=== PATIENT | female | born 1945 | race Two or more races ===

== ENCOUNTER 2024-09-12 15:31 | Emergency (ER) | payer MEDICARE, SELFPAY ==
[2024-09-12 15:35] VITALS: BP 109/58
--- NOTE | 2024-09-12 15:41 | ED.GENMED ---
ED Provider Triage
<Sharon Yun K 12 PRINCIPAL - Last Filed: 09/12/24 15:56>
-
Patient seen by provider in Triage?: Seen in Triage
Attestation: A medical screening examination has been initiated by a qualified medical provider. Based on the assessment performed at this time, it has been determined that an emergent medical condition may exist and the patient has been informed
that further medical evaluation and possible additional diagnostic testing may be needed.
HPI: 88 yo female here for dizziness, is currently taking Meclizine, here because after shopping at [employer] w granddaughter she felt like she was going to pass out. States sometimes her sugar goes low so she drank some Pepsi. As granddaughter was
pouring it, pt felt weak and almost fainted. Granddaughter called her father who called the ambulance.
Ate an egg and toast for breakfast 11:30 a.m.
'I feel a little bit weak but not dizzy.' Denies n/v/d/c
Has history of Vertigo
GENERAL: Alert , in no apparent distress
EYE: No visual abnormalities.
ENT: No visible abnormalities.
LUNGS: No acute respiratory distress
NEUROLOGICAL: Alert and oriented
SKIN: Skin intact. No visible changes.
MUSCULOSKELETAL: Moving extremities normally
PSYCH: Normal and appropriate interaction.
This is a medical evaluation conducted in person to initiate diagnostic evaluation and provide initial therapeutics. Please see further documentation by the treating clinician.
History of Present Illness
<Sharon Yun, K 12 PRINCIPAL - Last Filed: 09/12/24 15:56>
General
Chief Complaint: Dizziness
Time Seen by Provider: 09/12/24 18:12
<LEXY Muller - Last Filed: 09/12/24 19:38>
General
Source: patient
Exam Limitations: none
History of Present Illness
History of Present Illness:
This is an 79 year old female that comes in with c/o dizziness. States that she almost fainted. States that she had been out with her granddaughter and when they got home she felt like her blood sugar was low so she asked her for a coke. State
that she felt like she was going to fall down so her granddaughter helped her to the [employer] school football [employer]. Patient states that she did not pass out. States that she only had breakfast and did not eat throughout the day. Denies any fever, chills, chest pain, SOB,
abd pain, nausea, vomiting, diarrhea, headache, dizziness, urinary burning.
Past History
<LEXY Muller - Last Filed: 09/12/24 19:38>
Past History
ED Past Medical History: HTN, Hypercholesterolemia, NIDDM and Other (Vertigo, )
ED Past Surgical History: None
Social History
Tobacco: Non-smoker
Alcohol: Occasional
Personal:
Living: with family
Review of Systems
<LEXY Muller - Last Filed: 09/12/24 19:38>
Review of Systems
All Other Systems: ROS reviewed and negative except as documented in HPI and ROS
Constitutional: Reports no symptoms; Denies fever or chills
EENT: Reports no symptoms
Respiratory: Reports no symptoms; Denies cough or trouble breathing
Cardiac: Reports no symptoms; Denies chest pain
ABD/GI: Reports no symptoms; Denies abdominal pain, nausea, vomiting or diarrhea
: Reports no symptoms; Denies dysuria, frequency or urgency
Musculoskeletal: Reports no symptoms
Skin: Reports no symptoms
Neurological: Reports no symptoms; Denies dizzy or headache
Psychiatric: Reports no symptoms
Phy Exam
<LEXY Muller - Last Filed: 09/12/24 19:38>
General Physical Exam
General Presentation: no apparent distress
General age: appears stated age
General Skin: warm and dry
General Habitus: elderly
General Mental: alert
General Hydration: appears well hydrated (Patient just took a sip of water)
ENT Exam
ENT Exam: TM's normal, pharynx normal and neck supple
Eye Exam
Eye Exam: EOMI
Cardiovascular Exam
Cardiovascular Exam: regular rate/rhythm, no edema, no murmur and normal peripheral pulses
Pulmonary Exam
Pulmonary Exam: lungs clear, no respiratory distress, no rales, chest non tender, no crackles, no rhonchi, no wheezing and no cough
Gastrointestinal Exam
Gastrointestinal Exam: normal bowel sounds, non tender, soft, no organomegaly, no pulsatile mass and non distended
Musculoskeletal Exam
Musculoskeletal Exam: full ROM and no edema
Skin Exam
Skin Exam: normal color, warm/dry, no rash and no petechia
Psychiatric Exam
Psychiatric Exam: normal mood/affect
Course
<Sharon Yun K 12 PRINCIPAL - Last Filed: 09/12/24 15:56>
Orders/Labs/Results
Orders:
Orders
09/12/24 16:02
Complete Blood Count/With Diff Urgent
Comprehensive Metabolic Panel Urgent
09/12/24 18:21
Electrocardiogram (*1) Urgent
Reason for Study: Vertigo / Dizzy
EKG- Treatment ONCE
Orthostatic VS- Treatment ONCE
0.9% Sodium Chloride 1000 ml [Nss] 1,000 ml IV BOLUS
09/12/24 18:28
Troponin I Urgent
Abnormal Lab Results
09/12/24
16:02
MCH 25.6 L pg
(27.0-31.0)
MCHC 30.6 L g/dL
(33.0-37.0)
Absolute Neuts (auto) 9.6 H 10^3/uL
(1.4-6.5)
Absolute Lymphs (auto) 0.5 L 10^3/uL
(1.2-3.4)
Neutrophils % 89.8 H %
(42.2-75.2)
Lymphocytes % 4.7 L %
(20.5-51.1)
BUN 28 H mg/dl
(7-17)
Glucose 170 H mg/dl
(70-99)
09/12/24 16:02
09/12/24 16:02
Vital Signs
Initial and Last Documented VS:
Initial Vital Signs
Temp Pulse Resp BP Pulse Ox
98.4 F 107 16 109/58 98
09/12/24 15:35 09/12/24 15:35 09/12/24 15:35 09/12/24 15:35 09/12/24 15:35
Last Documented Vital Signs
Temp Pulse Resp BP Pulse Ox
98.4 F 107 16 145/64 96
09/12/24 15:35 09/12/24 15:35 09/12/24 15:35 09/12/24 18:43 09/12/24 18:45
<LEXY Muller - Last Filed: 09/12/24 19:38>
Orders/Labs/Results
Orders:
Orders
09/12/24 16:02
Complete Blood Count/With Diff Urgent
Comprehensive Metabolic Panel Urgent
09/12/24 18:21
Electrocardiogram (*1) Urgent
Reason for Study: Vertigo / Dizzy
EKG- Treatment ONCE
Orthostatic VS- Treatment ONCE
0.9% Sodium Chloride 1000 ml [Nss] 1,000 ml IV BOLUS
09/12/24 18:28
Troponin I Urgent
Abnormal Lab Results
09/12/24
16:02
MCH 25.6 L pg
(27.0-31.0)
MCHC 30.6 L g/dL
(33.0-37.0)
Absolute Neuts (auto) 9.6 H 10^3/uL
(1.4-6.5)
Absolute Lymphs (auto) 0.5 L 10^3/uL
(1.2-3.4)
Neutrophils % 89.8 H %
(42.2-75.2)
Lymphocytes % 4.7 L %
(20.5-51.1)
BUN 28 H mg/dl
(7-17)
Glucose 170 H mg/dl
(70-99)
09/12/24 16:02
09/12/24 16:02
Dehydration. Hyperglycemia.
Vital Signs
Initial and Last Documented VS:
Initial Vital Signs
Temp Pulse Resp BP Pulse Ox
98.4 F 107 16 109/58 98
09/12/24 15:35 09/12/24 15:35 09/12/24 15:35 09/12/24 15:35 09/12/24 15:35
Last Documented Vital Signs
Temp Pulse Resp BP Pulse Ox
98.4 F 107 16 145/64 96
09/12/24 15:35 09/12/24 15:35 09/12/24 15:35 09/12/24 18:43 09/12/24 18:45
<LEXY Muller - Last Filed: 09/12/24 19:38>
MDM/Problems Addressed
Differential Diagnosis Includes:
Dehydration. Vertigo
MDM/Problems Addressed:
This is a 79 year old female that comes in with c/o feeling like she was going to fall down. Patient only eat breakfast this morning and has not eaten the rest of the day. States that she was really not drinking much water today.
Will check labs, give IV fluids, Orthostatic vitals and ECG
back into see patient. patient is eating and has had IV fluids. States that she is feeling better. Got patient up to the BR and patient is very steady on her feet. Encouraged patient to make sure she eats three meals daily or 6 small meals and
increase her water intake to 8-8oz glasses daily. Patient to follow up with the family doctor. return with any concerns.
Chronic conditions affecting care:
Vertigo
Acute Exacerbation and/or Progression of Chronic Illness:
Vertigo
<LEXY Muller - Last Filed: 09/12/24 19:38>
*Pulse Oximetry
Patient hypoxic: no
*EKG
Interpreted by ED Provider?: Yes
Heart Rate: 88
Rate: normal
Rhythm: sinus
[place]: left axis deviation
Interval: normal interval
QRS Pattern: normal QRS
Ischemia: T-wave inversion (aVL, V1, V2, V3, V4, V5, V6)
*Research Soil Scientist Interpretation
Rate: Research Soil Scientist- N/A
*Critical Care Note
Total Time (30-74mins, 75-104mins- exclusive of procedures): Not Applicable
ED Attending Note
<Sharon Yun NP - Last Filed: 09/12/24 15:56>
-
Portions of this chart may have been created with voice recognition software.� Occasional wrong word or��sound alike� substitutions may have occurred due to the inherent limitations of voice recognition software.
Discharge Plan
Departure
Patient Disposition: Home (Routine Discharge)
Date of Disposition: 09/12/24
Time of Disposition: 19:36
Patient with high blood pressure during this ER visit?: No
Condition: Good
Covid-19: Not Applicable
Discharge Problem:
Acute dehydration, Dizziness
Instructions: Dehydration, Adult ED, Dizziness, BLOOD PRESSURE
Referrals:
NONE,* [Family Provider] -
Activity Restrictions/Additional Instructions:
As discussed, your blood work shows that you are dehydration. Please increase your water intake to 8-8oz glasses daily. Please try eating three meals daily or 6 small meals as your body needs food to function. Follow up with the family doctor for
recheck. IF YOU HAVE ANY OTHER CONCERNS PLEASE RETURN TO THE EMERGENCY ROOM.
Interventions
Interventions:
*Risk Screen - Suicide Last Done: 09/12/24 15:41
*General Assessment Last Done: 09/12/24 18:16
*Neglect/Abuse Screening Last Done: 09/12/24 15:41
ED- Fall Risk Assessment Last Done: 09/12/24 18:16
*ED COVID-19 Vaccine History Last Done: 09/12/24 18:16
ED- Neurological Assessment Last Done: 09/12/24 18:16
ED- Cardiac Assessment Last Done: 09/12/24 18:16
ED Swallowing Screen Last Done: 09/12/24 18:16
Discharge Date and Time
Print Language: [place] CITIZEN
[2024-09-12 16:08] LABS: % Basophils 0.3 % (0-2); % Eosinophils 2.2 % (0-6); % Immature Granulocytes 0.4 % (0-0.5); % Lymphocytes 4.7 % (20.5-51.1); % Monocytes 2.6 % (1.7-9.3); % Neutrophils 89.8 % (42.2-75.2); Absolute Eosinophils 0.2 10^3/uL (0-0.7); Absolute Lymphocytes 0.5 10^3/uL (1.2-3.4); Absolute Monocytes 0.3 10^3/uL (0.1-0.6); Absolute Neutrophils 9.6 10^3/uL (1.4-6.5); Hematocrit 39.2 % (37.0-47.0); Mean Corp Hgb Conc. 30.6 g/dL (33.0-37.0); Mean Corpuscular Hgb 25.6 pg (27.0-31.0); Mean Corpuscular Volume 83.8 fL (81.0-99.0); Mean Platelet Volume 9.6 fL (7.4-10.4); Nucleated Red Blood Cells % 0 %; Platelet Count 219 10^3/uL (130-400); Red Blood Cell Count 4.68 10^6/uL (4.20-5.40); Red Cell Dist. Width 13.8 % (11.5-14.5); White Blood Cell Count 10.7 10^3/uL (4.8-10.8)
[2024-09-12 16:23] LABS: ALT (SGPT) 19 U/L (0-35); AST (SGOT) 30 U/L (14-36); Albumin 4.4 g/dl (3.5-5.0); Alkaline Phosphatase 60 U/L (38-126); Blood Urea Nitrogen 28 mg/dl (7-17); Calcium 9.5 mg/dl (8.4-10.2); Carbon Dioxide 27 mmol/L (22-30); Chloride 102 mmol/L (98-107); Glucose 170 mg/dl (70-99); Potassium 4.9 mmol/L (3.5-5.1); Sodium 139 mmol/L (135-145); Total Bilirubin 0.5 mg/dl (0.2-1.3); Total Protein 7.4 g/dl (6.3-8.2); eGFR > 60.00
[2024-09-12 18:14] VITALS: BP 126/110
[2024-09-12 18:15] VITALS: BMI 18.4
[2024-09-12] MEDS: NSS 1000 IV (18:27)
[2024-09-12 18:39] VITALS: BP 124/57
[2024-09-12 18:40] VITALS: BP 124/57; BP 134/65; BP 145/64; PULSE 84; PULSE 91; PULSE 95
[2024-09-12 18:42] VITALS: BP 134/65
[2024-09-12 18:43] VITALS: BP 145/64
[2024-09-12 19:00] LABS: Troponin I < 0.012 ng/ml
== END 2024-09-12 20:15 | disposition home or self-care (01) ==
LOC: EMR 15:31
PROVIDERS: Clinical Nurse Specialist Family Health; Registered Nurse; EMERGENCY PHYSICIAN Emergency Medicine
DX: E86.0 Dehydration (principal); I10 Essential (primary) hypertension; E78.00 Pure hypercholesterolemia, unspecified; E11.65 Type 2 diabetes mellitus with hyperglycemia
CPT/HCPCS: 96360; 99284; 80053; 84484; 85025; 93005